=== PATIENT | female | born 1970 | race African-American/Black ===

== ENCOUNTER 2018-10-29 13:52 | Emergency (ER) | payer MEDICAID ==
[~2018-10-29] VITALS: Ht 165.1 cm; Wt 97.1 kg
[2018-10-29 13:57] VITALS: BP_SYST 163
[2018-10-29] MEDS ORDERED: traMADol HCL HCL 50 MG TABLET (ULTRAM) PO ONE (14:45)
[2018-10-29 15:11] VITALS: BP_SYST 162
== END 2018-10-29 15:05 | disposition home or self-care (01) ==
LOC: SED 13:52
DX: N61.0 Mastitis without abscess (principal); I10 Essential (primary) hypertension
CPT/HCPCS: 81002; 99283